=== PATIENT | female | born 1965 ===

== ENCOUNTER 2018-01-05 09:41 | Outpatient (CLI) | payer OTHER | END 2018-01-05 09:54 | disposition home or self-care (01) | LOC: LAB 09:41 | DX: E55.9 Vitamin D deficiency, unspecified (principal) ==

== ENCOUNTER 2021-02-28 08:50 | Emergency (ER) | payer OTHER ==
[~2021-02-28] VITALS: Ht 170.2 cm; Wt 63.5 kg
[2021-02-28] MEDS ORDERED: DICY20TA PO (17:44)
[2021-02-28] MEDS ORDERED: PEPCID AC20 MG PO (17:44)
== END 2021-02-28 18:04 | disposition home or self-care (01) ==
LOC: ER 08:50
DX: R10.11 Right upper quadrant pain (principal); E86.0 Dehydration; K29.60 Other gastritis without bleeding; Z03.818 Encounter for observation for suspected exposure to other biological agents ruled out

== ENCOUNTER 2021-10-03 16:17 | Emergency (ER) | payer OTHER ==
[~2021-10-03] VITALS: Ht 172.7 cm; Wt 70.8 kg
[~2021-10-03 16:17] MED LIST: DICY20TA PO; PEPCID AC20 MG PO
== END 2021-10-03 20:03 | disposition home or self-care (01) ==
LOC: ER 16:17
DX: K29.70 Gastritis, unspecified, without bleeding (principal); R10.13 Epigastric pain; Z88.6 Allergy status to analgesic agent